=== PATIENT | male | born 1990 | race Two or more races ===

== ENCOUNTER 2022-06-04 18:37 | Emergency (ER) | payer OTHER ==
[~2022-06-04] VITALS: Ht 175.3 cm; Wt 65.8 kg
== END 2022-06-04 20:03 | disposition home or self-care (01) ==
LOC: ER 18:37
DX: M94.0 Chondrocostal junction syndrome [Tietze] (principal); M54.6 Pain in thoracic spine; Z91.013 Allergy to seafood